=== PATIENT | female | born 1995 | race Caucasian/White ===

== ENCOUNTER 2019-04-15 05:03 | Emergency (ER) | payer MEDICAID ==
--- NOTE | 2019-04-15 05:35 | EDM.PDOC ---
ED HPI GENERAL MEDICAL PROBLEM - General Chief Complaint: Diabetic Complaint Stated Complaint: [facility] Time Seen by Provider: 04/15/19 05:06 Source of Information: Reports: Patient, Significant Other (Fianc) History Limitations: Reports: No Limitations - History of Present Illness INITIAL COMMENTS - FREE TEXT/NARRATIVE: Ms. Owens is a very pleasant 23-year-old woman with a past medical history significant for type 1 diabetes and hypertension, who states that she has a continuous glucose monitor (CGM), but not an insulin pump. Alarms are set on the GM, and the patient and her fianc were woken this morning when the CGM alerted her that her glucose was < 40. Her fianc gave her juice and a Coca- Cola, and a short while later it had risen to 51. EMS was called. It is not clear what the patient's Accu-Chek was when they arrived, however, they started the patient on D10. Upon arrival to the ED, and Accu-Chek here is 204. The patient states that she is not sure if she was symptomatic when her glucose was < 40. Her fianc told her that she was diaphoretic, and not making much sense. Here in the ED, she states that she is feeling completely back to normal. The patient takes 9 units of Lantus in the morning, and 4 in the evening. She also takes NovoLog by sliding scale. She states that she ate a normal dinner and had a normal evening snack last night, and took her usual amount of insulin. She states that she has had hypoglycemic events in the past, primarily when she was a child, and doubled up on her insulin. She states that there is no chance that she doubled up on her insulin this time. The patient does not know what may have precipitated this event. She states that she was hospitalized with pneumonia in January, but otherwise she has not been recently ill with fever, chills, cough, dyspnea, chest pain, palpitations, nausea, vomiting, constipation, diarrhea, abdominal pain, urinary symptoms, recent weight gain or weight loss, recent bloody bowel movements or black bowel movements, recent joint aches, headaches, or rashes. The patient states that she is currently on a diuretic, after getting a lot of interstitial fluid when she was treated for pneumonia. She has her BUN/Cr checked frequently, most recently on 04/01/2019, and that it has remained normal. Unfortunately, her blood tests are performed at [facility], and we do not have access to those records. Here in the ED, the patient is BP is found to be mildly elevated, with tachycardia. Her oxygen saturation is 100% on room air. The patient's PCP is Dr. Carolnie Schmidt. She received an influenza vaccine this season. - Related Data Allergies Allergy/AdvReac Type Severity Reaction Status Date / Time pregabalin [From Lyrica] Allergy Rash Verified 04/15/19 05:06 Sulfa (Sulfonamide Allergy Rash Verified 04/15/19 05:06 Antibiotics) Home Meds: Home Meds Furosemide 20 mg PO DAILY 04/15/19 [History] Insulin Aspart [NovoLOG] 4 units SQ BEDTIME 04/15/19 [History] Insulin Aspart [NovoLOG] 9 units SQ ACBREAKFAST 04/15/19 [History] Insulin Glarg,Human.Rec.Analog [Lantus] 0 units SQ QID 04/15/19 [History] Lisinopril [Zestril] 10 mg PO DAILY 04/15/19 [History] Past Medical History Cardiovascular History: Reports: Hypertension Endocrine/Metabolic History: Reports: Diabetes, Type I - Past Surgical History HEENT Surgical History: Reports: Oral Surgery (wisdom teeth extraction) Social & Family History - Tobacco Use Smoking Status *Q: Never Smoker - Alcohol Use Alcohol Use History: Yes Alcohol Use Frequency: Rarely - Recreational Drug Use Recreational Drug Use: No - Living Situation & Occupation Living situation: Reports: Single, with Significant Other (Fianc) Occupation: Employed ([employer]) ED ROS GENERAL - Review of Systems Review Of Systems: Comprehensive ROS is negative, except as noted in HPI. ED EXAM GENERAL NO PERIP PULSE - Physical Exam Exam: See Below Exam Limited By: No Limitations General Appearance: Alert, WD/WN, No Apparent Distress Eye Exam: Bilateral Eye: EOMI, Normal Inspection Ears: Normal External Exam, Hearing Grossly Normal Nose: Normal Inspection Throat/Mouth: Normal Inspection, Normal Lips, Normal Voice, No Airway Compromise Head: Atraumatic, Normocephalic Neck: Normal Inspection, Full Range of Motion Respiratory/Chest: No Respiratory Distress, Lungs Clear, Normal Breath Sounds, No Accessory Muscle Use Cardiovascular: Normal Peripheral Pulses, No Gallop, No JVD, No Murmur, No Rub, Tachycardia (regular), Other (Prominent split S2, which fused when the patient was asked to perform a valsalva maneuver) GI/Abdominal: Normal Bowel Sounds, Soft, Non-Tender, No Organomegaly, No Distention, No Abnormal Bruit, No Mass (Female) Exam: Deferred Rectal (Female) Exam: Deferred Back Exam: Normal Inspection, Full Range of Motion, NT Extremities: Normal Inspection, Normal Range of Motion, Normal Capillary Refill , Other (1-2+ bilateral pretibial edema, with some ecchymosis to the anterior right leg) Neurological: Alert, Oriented, Normal Cognition, No Motor/Sensory Deficits Psychiatric: Normal Affect Skin Exam: Warm, Dry, Intact, Normal Color, No Rash EKG INTERPRETATION EKG Date: 04/15/19 Time: 05:36 Rhythm: Other (Sinus tachycardia) Rate (Beats/Min): 115 Clifford: Normal P-Wave: Present QRS: Other (Right VCD) ST-T: Normal QT: Prolonged (QTc 522 ms) Comparison: NA - No Prior EKG Course - Vital Signs Last Recorded V/S: Last Vital Signs Temp 36.2 C 04/15/19 05:06 Pulse 109 H 04/15/19 05:06 Resp 16 04/15/19 05:06 BP 155/116 H 04/15/19 05:06 Pulse Ox 100 04/15/19 05:06 - Orders/Labs/Meds Orders: Active Orders 24 hr Category Date Time Status Accu Check [Blood Glucose Check, Bedside] [RC] ONETIME Care 04/15/19 05:13 Active EKG Documentation Completion [RC] STAT Care 04/15/19 05:29 Active Labs: Laboratory Tests 04/15/19 04/15/19 04/15/19 Range/Units 05:06 06:07 06:07 WBC 9.40 (3.98-10.04) K/mm3 RBC 3.24 L (3.98-5.22) M/mm3 Hgb 10.2 L (11.2-15.7) gm/dl Hct 32.6 L (34.1-44.9) % MCV 100.6 H (79.4-94.8) fl MCH 31.5 (25.6-32.2) pg MCHC 31.3 L (32.2-35.5) g/dl RDW Std Deviation 47.4 H (36.4-46.3) fL Plt Count 387 H (182-369) K/mm3 MPV 9.2 L (9.4-12.3) fl Neutrophils % (Manual) 77 H (40-60) % Band Neutrophils % 0 (0-10) % Lymphocytes % (Manual) 21 (20-40) % Atypical Lymphs % 0 % Monocytes % (Manual) 1 L (2-10) % Eosinophils % (Manual) 1 (0.7-5.8) % Basophils % (Manual) 0 L (0.1-1.2) Platelet Estimate Adequate Anisocytosis 2+ moderate Macrocytosis 3+ marked RBC Morph Comment Not Reportable Sodium 144 (136-145) mEq/L Potassium 3.9 (3.5-5.1) mEq/L Chloride 106 (98-107) mEq/L Carbon Dioxide 29 (21-32) mEq/L Anion Gap 12.9 (5-15) BUN 19 H (7-18) mg/dL Creatinine 0.8 (0.55-1.02) mg/dL Est Cr Clr Drug Dosing 72.21 mL/min Estimated GFR (MDRD) > 60 (>60) mL/min BUN/Creatinine Ratio 23.8 H (14-18) Glucose 163 H (74-106) mg/dL POC Glucose 204 H (70-105) mg/dL Calcium 8.6 (8.5-10.1) mg/dL Total Bilirubin 0.1 L (0.2-1.0) mg/dL AST 23 (15-37) U/L ALT 33 (14-59) U/L Alkaline Phosphatase 139 H (46-116) U/L Total Protein 6.8 (6.4-8.2) g/dl Albumin 2.5 L (3.4-5.0) g/dl Globulin 4.3 gm/dL Albumin/Globulin Ratio 0.6 L (1-2) - Re-Assessments/Exams Free Text/Narrative Re-Assessment/Exam: 04/15/19 05:30 The cause of the patient's hypoglycemic reaction is unclear, as she ate her usual diet and took her usual amount of insulin. No recent illness. After drinking juice and Coca-Cola at home and being given D10 by EMS, her Accu-Chek here is 204. The plan will be to continue to monitor her blood glucose until around 07:00, at which time she can have breakfast, then be discharged home. At present, her D10 is off, but if her blood glucose should drop, we can restart it. In the meantime, I have ordered a CBC and CMP to evaluate for an infection or significant electrolyte abnormalities, and an ECG due to a split S2 on auscultation of her heart. 04/15/19 06:53 The patient CBC is remarkable for an H/H mildly depressed at 10.2/32.6, and platelets elevated at 387,000, with the remainder of her CBC being unremarkable. Her CMP is remarkable for a BUN slightly elevated at 19 with a creatinine normal at 0.8. Her blood glucose is elevated at 163, and her alkaline phosphatase is mildly elevated at 139, with the remainder of her CMP being unremarkable. The patient's most recent blood glucose is 261. We will order breakfast for the patient at 7:00, and estimate that it will arrive around 7:15. The patient will resume her usual insulin accordingly. She can then be discharged home. Departure - Departure Time of Disposition: 06:56 Disposition: Home, Self-Care 01 Clinical Impression: Right ventricular conduction delay, QT prolongation, Hypoglycemic reaction - Discharge Information *PRESCRIPTION DRUG MONITORING PROGRAM REVIEWED*: Not Applicable *COPY OF PRESCRIPTION DRUG MONITORING REPORT IN PATIENT MILENA: Not Applicable Referrals: Caroline Schmidt MD [Primary Care Provider] - Forms: ED Department Discharge Additional Instructions: You were seen in the emergency room after suffering a hypoglycemic reaction at home. Work-up in the ER included blood work and an ECG. Your blood work was unremarkable, but your ECG confirmed that you have a right ventricular conduction delay and a prolonged QT. The right ventricular conduction delay is of no specific concern, although it produces an unusual sounding heartbeat. The QT prolongation means that you should probably avoid certain types of medications. Your blood glucose returned to normal after you drank some juice and Coca-Cola at home and were given dextrose-containing IV fluid by the paramedics. The cause of your hypoglycemic event is not clear, therefore it is possible that it might happen again. Going forward, we recommend that you continue on your usual dose of insulin with your usual diet, however, if you suffer another hypoglycemic event, changes will need to be made in the amount of insulin that you take. Follow-up with your PCP, Dr. Caroline Schmidt, as needed. If any other problems, please do not hesitate to return to the ER. Sepsis Event Note - Evaluation Sepsis Screening Result: No Definite Risk - Focused Exam Vital Signs: Vital Signs Temp Pulse Resp BP Pulse Ox 04/15/19 05:06 36.2 C 109 H 16 155/116 H 100 Date Exam was Performed: 04/15/19 Time Exam was Performed: 07:08 - My Orders Last 24 Hours: My Active Orders 04/15/19 05:13 Accu Check [Blood Glucose Check, Bedside] [RC] ONETIME 04/15/19 05:29 EKG Documentation Completion [RC] STAT - Assessment/Plan Last 24 Hours: My Active Orders 04/15/19 05:13 Accu Check [Blood Glucose Check, Bedside] [RC] ONETIME 04/15/19 05:29 EKG Documentation Completion [RC] STAT
== END 2019-04-15 09:00 | disposition home or self-care (01) ==
LOC: SUPCPDRO 05:03 → JD.ED 05:03
DX: E10.649 Type 1 diabetes mellitus with hypoglycemia without coma (principal); I45.9 Conduction disorder, unspecified; R94.31 Abnormal electrocardiogram [ECG] [EKG]; I10 Essential (primary) hypertension; Z79.4 Long term (current) use of insulin; Z79.899 Other long term (current) drug therapy; Z88.8 Allergy status to other drugs, medicaments and biological substances; Z88.2 Allergy status to sulfonamides
CPT/HCPCS: 36415; 80053; 82962; 85007; 85027; 93005; 99285-25

== ENCOUNTER 2021-01-28 18:03 | Emergency (ER) | payer MEDICARE, MEDICAID ==
[2021-01-28] MEDS ORDERED: Fluorescein 1 MG Ophth Strip EYERT ONE (19:51)
--- NOTE | 2021-01-28 19:53 | EDM.PDOC ---
ED HPI GENERAL MEDICAL PROBLEM - General Chief Complaint: Eye Problems Stated Complaint: VISION COMPLAINT Time Seen by Provider: 01/28/21 19:51 Source of Information: Reports: Patient History Limitations: Reports: No Limitations - History of Present Illness INITIAL COMMENTS - FREE TEXT/NARRATIVE: Patient is a 25-year-old female presenting to the emergency room with a chief complaint of right eye visual change. She has a past history of type 1 diabetes and chronic kidney disease. She started on hemodialysis in April. Last hemodialysis session was today. She noticed this change in her vision today. She reports that she feels like there is something in her line of vision in the right eye. She states it almost looks like a blood vessel. It does follow her field of vision when she changes her gaze. She denies any trauma to the eye, any headache, pain in the eye, discharge from the eye, sensitivity to light. She does not wear glasses or contacts. She does follow with a retinal specialist every 3 to 6 months. No past history of ocular surgery. - Related Data Allergies Allergy/AdvReac Type Severity Reaction Status Date / Time pregabalin [From Lyrica] Allergy Rash Verified 01/28/21 18:33 Sulfa (Sulfonamide Allergy Rash Verified 01/28/21 18:33 Antibiotics) Home Meds: Home Meds Insulin Aspart [NovoLOG] 0 units SQ DAILY 04/15/19 [History] Losartan [Cozaar] 1 tab PO DAILY 01/28/21 [History] Metoprolol Succinate 1 tab PO DAILY 01/28/21 [History] amLODIPine [Norvasc] 1 tab PO DAILY 01/28/21 [History] Past Medical History Cardiovascular History: Reports: Hypertension Respiratory History: Reports: Pneumonia, Recurrent Genitourinary History: Reports: Dialysis Endocrine/Metabolic History: Reports: Diabetes, Type I - Past Surgical History HEENT Surgical History: Reports: Oral Surgery Female Surgical History: Reports: Other (See Below) Other Female Surgeries/Procedures: dialysis shunt Social & Family History - Tobacco Use Tobacco Use Status *Q: Never Tobacco User Second Hand Smoke Exposure: No - Living Situation & Occupation Living situation: Reports: Single, with Significant Other (Fianc) Occupation: Employed ([employer]) ED ROS GENERAL - Review of Systems Review Of Systems: Comprehensive ROS is negative, except as noted in HPI. ED EXAM GENERAL W FULL EYE - Physical Exam Exam: See Below Text/Narrative:: EYE EXAM (detailed) Visual Acuity: OD 20/20; OS 20/20; Visual Gallego:OD intact x 4; OS intact x 4 Extraocular movements: OD intact w/o diplopia; OS intact w/o diplopia Lids/Lashes/Lacrimal: OD no lesions; OS no lesions Conjunctiva & Sclera: OD white and quiet; OS white and quiet Cornea: OD no fluorescein uptake;OS not tested Anterior chamber: OD deep and quiet; OS deep and quiet Iris: OD round and reactive; OS round and reactive Lens: OD clear; OS clear Retina: OD examined with ultrasound demonstrates linear flap in the posterior retinal area. No snow globe appearance. Intraocular pressure: Not assessed Course - Vital Signs Last Recorded V/S: Last Vital Signs Temp 37.3 C 01/28/21 18:30 Pulse 102 H 01/28/21 18:30 Resp 16 01/28/21 18:30 BP 134/82 01/28/21 18:30 Pulse Ox 99 01/28/21 18:30 - Orders/Labs/Meds Meds: Medications Discontinued Medications Generic Name Dose Route Start Last Admin Trade Name Maxiq PRN Reason Stop Dose Admin Fluorescein Sodium 1 mg 01/28/21 19:51 Fluorescein 1 Mg Ophth Strip EYERT 01/28/21 19:52 ONETIME ONE Departure - Departure Time of Disposition: 20:41 Disposition: Home, Self-Care 01 Clinical Impression: Retinal detachment - Discharge Information Referrals: Samia Espinosa MD [Primary Care Provider] - Forms: ED Department Discharge Additional Instructions: Please follow-up with Dr. Carpio on January 31, at 9 AM. Sepsis Event Note (ED) - Evaluation Sepsis Screening Result: No Definite Risk - Focused Exam Vital Signs: Vital Signs Temp Pulse Resp BP Pulse Ox 01/28/21 18:30 37.3 C 102 H 16 134/82 99 - Assessment/Plan Assessment:: Patient is a 25-year-old female presenting with visual changes. Eye exam as listed above. Was able to get in touch with her retinal specialist, Dr. Carpio who agreed to see her on Sunday at 9 AM. No other interventions required at this time. Patient will be discharged in stable condition. Return precautions discussed.
== END 2021-01-28 20:51 | disposition home or self-care (01) ==
LOC: JD.ED 18:03
DX: H33.21 Serous retinal detachment, right eye (principal); E10.9 Type 1 diabetes mellitus without complications; I10 Essential (primary) hypertension; Z88.2 Allergy status to sulfonamides; Z88.8 Allergy status to other drugs, medicaments and biological substances; Z79.899 Other long term (current) drug therapy
CPT/HCPCS: 99284-25

== ENCOUNTER 2021-09-03 07:29 | Emergency (ER) | payer MEDICARE, MEDICAID ==
[2021-09-03] MEDS ORDERED: Doxycycline 100 MG Cap PO ONE (09:30)
[2021-09-03] MEDS ORDERED: Famotidine 10 MG Tab PO ONE (09:30)
[2021-09-03] MEDS ORDERED: Famotidine 20 MG Tab PO ONE (09:45)
== END 2021-09-03 10:41 | disposition home or self-care (01) ==
LOC: JD.ED 07:29
DX: L08.9 Local infection of the skin and subcutaneous tissue, unspecified (principal); I10 Essential (primary) hypertension; E10.9 Type 1 diabetes mellitus without complications; Z88.8 Allergy status to other drugs, medicaments and biological substances; Z88.2 Allergy status to sulfonamides; Z79.82 Long term (current) use of aspirin
CPT/HCPCS: 99283; A9270; 99282

== ENCOUNTER 2021-11-09 11:08 | Emergency (ER) | payer MEDICARE, MEDICAID | END 2021-11-09 12:30 | disposition home or self-care (01) | LOC: JD.ED 11:08 | DX: L03.113 Cellulitis of right upper limb (principal); I10 Essential (primary) hypertension; E10.9 Type 1 diabetes mellitus without complications; Z79.899 Other long term (current) drug therapy; Z79.82 Long term (current) use of aspirin; Z88.8 Allergy status to other drugs, medicaments and biological substances; Z88.2 Allergy status to sulfonamides | CPT/HCPCS: 36415; 80053; 85007; 85027; 86140; 99283; 99284 ==

== ENCOUNTER 2024-06-19 17:10 | Inpatient (IN) | payer MEDICARE, BC ==
[2024-06-19 20:59] LABS: BASOPHILS PERCENT AUTO 0.2 % (0.0-1.0); EOSINOPHILS PERCENT AUTO 0.4 % (0.0-6.0); HEMATOCRIT 38.3 % (37.0-47.0); HEMOGLOBIN 11.8 gm/dl (12.0-16.0); IMMATURE GRAN ABSOLUTE AUTO 0.01 K/mm3 (0.00-0.05); IMMATURE GRAN PERCENT AUTO 0.2 % (0.0-0.4); LYMPHOCYTES PERCENT AUTO 19.5 % (24.0-44.0); MEAN CORPUSCULAR HEMOGLOBIN 29.1 pg (28.0-32.0); MEAN CORPUSCULAR HGB CONC 30.8 g/dl (32.0-36.0); MEAN CORPUSCULAR VOLUME 94.3 fl (83.0-99.0); MEAN PLATELET VOLUME 10.3 fl (9.4-12.3); MONOCYTES ABSOLUTE AUTO 0.3 K/mm3 (0.0-0.8); MONOCYTES PERCENT AUTO 6.2 % (0.0-8.0); NEUTROPHILS ABSOLUTE AUTO 3.7 K/mm3 (1.8-7.7); NEUTROPHILS PERCENT AUTO 73.5 % (41.0-71.0); PLATELET COUNT,PLT 222 K/mm3 (150-400); RED BLOOD CELL COUNT 4.06 M/mm3 (4.10-5.30); WHITE BLOOD CELL COUNT,WBC 5.03 K/mm3 (3.9-11.3)
[2024-06-19 21:19] LABS: A/G RATIO 1.1 (1-2); ANION GAP 13.6 (5-15); BILIRUBIN TOTAL 0.3 mg/dL (0.2-1.0); BUN/CREATININE RATIO 11.3 (14-18); CALCIUM 8.9 mg/dL (8.5-10.1); CREATININE 1.5 mg/dL (0.55-1.02); EST CRCL DRUG DOSING (CG) 40.08 mL/min; POTASSIUM,K 4.6 mEq/L (3.5-5.1); PROTEIN TOTAL,TP 7.7 g/dl (6.4-8.2)
[2024-06-19] MEDS: Sodium Chloride 0.9% 1,000 ML IV ONE ×2 (21:20→23:49)
[2024-06-19] MEDS: Polyethylene Glycol 3350 Powder 17 GM Packet PO ONE (23:49)
[2024-06-19] MEDS: Magnesium Citrate Solution 296 ML Bottle PO ONE (23:49)
[2024-06-20] MEDS: Iopamidol 612 MG/ML 100 ML Bottle IVPUSH ONE (00:15)
[2024-06-20] MEDS: Sodium Chloride 0.9% 1,000 ML IV ONE ×2 (01:36→02:40)
[2024-06-20] MEDS ORDERED: Acetaminophen 325 MG Tab PO PRN (09:04)
[2024-06-20] MEDS ORDERED: Ondansetron 4 MG/2 ML SDV IV PRN (09:04)
[2024-06-20] MEDS ORDERED: oxyCODONE 5 MG Tab PO PRN (09:04)
[2024-06-20 09:46] LABS: BASOPHILS PERCENT AUTO 0.4 % (0.0-1.0); EOSINOPHILS ABSOLUTE AUTO 0.1 K/mm3 (0.0-0.4); EOSINOPHILS PERCENT AUTO 1.9 % (0.0-6.0); HEMATOCRIT 33.3 % (37.0-47.0); IMMATURE GRAN ABSOLUTE AUTO 0.01 K/mm3 (0.00-0.05); IMMATURE GRAN PERCENT AUTO 0.2 % (0.0-0.4); LYMPHOCYTES ABSOLUTE AUTO 1.1 K/mm3 (1.0-4.8); LYMPHOCYTES PERCENT AUTO 22.9 % (24.0-44.0); MEAN CORPUSCULAR HEMOGLOBIN 29.6 pg (28.0-32.0); MEAN CORPUSCULAR HGB CONC 30.6 g/dl (32.0-36.0); MEAN CORPUSCULAR VOLUME 96.5 fl (83.0-99.0); MEAN PLATELET VOLUME 10.3 fl (9.4-12.3); MONOCYTES ABSOLUTE AUTO 0.6 K/mm3 (0.0-0.8); MONOCYTES PERCENT AUTO 12.2 % (0.0-8.0); NEUTROPHILS PERCENT AUTO 62.4 % (41.0-71.0); PLATELET COUNT,PLT 201 K/mm3 (150-400); RED BLOOD CELL COUNT 3.45 M/mm3 (4.10-5.30); WHITE BLOOD CELL COUNT,WBC 4.85 K/mm3 (3.9-11.3)
[2024-06-20 09:54] LABS: HEMOGLOBIN 10.2 gm/dl (12.0-16.0)
[2024-06-20] MEDS ORDERED: Polyethylene Glycol 3350 Powder 17 GM Packet PO PRN (10:03)
[2024-06-20] MEDS ORDERED: Docusate Sodium 100 MG Cap PO PRN (10:04)
[2024-06-20 10:06] LABS: A/G RATIO 1.1 (1-2); ALBUMIN 3.6 g/dl (3.4-5.0); ANION GAP 14.8 (5-15); BILIRUBIN TOTAL 0.2 mg/dL (0.2-1.0); BUN/CREATININE RATIO 16.9 (14-18); C-REACTIVE PROTEIN 0.25 mg/dL (<0.30); CALCIUM 8.2 mg/dL (8.5-10.1); CREATININE 1.3 mg/dL (0.55-1.02); EST CRCL DRUG DOSING (CG) 47.58 mL/min; MAGNESIUM 1.8 mg/dL (1.8-2.4); POTASSIUM,K 4.8 mEq/L (3.5-5.1); PROTEIN TOTAL,TP 6.9 g/dl (6.4-8.2)
[2024-06-20] MEDS: Polyethylene Glycol 3350 Powder 17 GM Packet PO SCH (10:16)
[2024-06-20] MEDS: Midodrine 5 MG Tab PO SCH (10:41)
[2024-06-20] MEDS: predniSONE 5 MG Tab PO SCH (10:41)
[2024-06-20] MEDS: MYCOPHENOLATE SODIUM 180 MG PO SCH ×2 (10:42→21:35)
[2024-06-20] MEDS: ITRACONAZOLE 100 MG PO SCH (10:42)
[2024-06-20] MEDS: Tacrolimus 0.5 MG Cap PO SCH (10:42)
[2024-06-20] MEDS: Sodium Chloride 0.9% 1,000 ML IV SCH (10:47)
[2024-06-20 14:39] LABS: APPEARANCE,URINE CLEAR (Clear); BILIRUBIN,URINE NEGATIVE (Negative); COLOR,URINE YELLOW (Yellow); GLUCOSE,URINE NEGATIVE (Negative); KETONES,URINE NEGATIVE (Negative); LEUKOCYTE ESTERASE,URINE NEGATIVE (Negative); NITRITE,URINE NEGATIVE (Negative); OCCULT BLOOD,URINE TRACE-INTACT (Negative); PROTEIN,URINE NEGATIVE (Negative); UROBILINOGEN,URINE 0.2 (0.2-1.0)
[2024-06-20 15:05] LABS: BACTERIA,URINE FEW /hpf (FEW); RBC,URINE 0-5 /hpf (0-5); SQUAMOUS EPITHELIAL CELLS,UR 0-5 /hpf (0-5); WBC,URINE 0-5 /hpf (0-5)
[2024-06-20 15:06] LABS: MUCUS,URINE FEW /hpf (FEW)
[2024-06-20] MEDS ORDERED: Midodrine 5 MG Tab PO PRN (17:35)
[2024-06-20] MEDS ORDERED: Docusate Sodium 100 MG Cap PO SCH (21:00)
[2024-06-21 05:58] LABS: BASOPHILS PERCENT AUTO 0.2 % (0.0-1.0); EOSINOPHILS ABSOLUTE AUTO 0.1 K/mm3 (0.0-0.4); EOSINOPHILS PERCENT AUTO 1.6 % (0.0-6.0); HEMATOCRIT 27.7 % (37.0-47.0); IMMATURE GRAN ABSOLUTE AUTO 0.01 K/mm3 (0.00-0.05); IMMATURE GRAN PERCENT AUTO 0.2 % (0.0-0.4); LYMPHOCYTES ABSOLUTE AUTO 0.8 K/mm3 (1.0-4.8); LYMPHOCYTES PERCENT AUTO 19.5 % (24.0-44.0); MEAN CORPUSCULAR HEMOGLOBIN 29.7 pg (28.0-32.0); MEAN CORPUSCULAR VOLUME 95.5 fl (83.0-99.0); MEAN PLATELET VOLUME 10.6 fl (9.4-12.3); MONOCYTES ABSOLUTE AUTO 0.5 K/mm3 (0.0-0.8); MONOCYTES PERCENT AUTO 11.5 % (0.0-8.0); NEUTROPHILS ABSOLUTE AUTO 2.8 K/mm3 (1.8-7.7); PLATELET COUNT,PLT 164 K/mm3 (150-400); WHITE BLOOD CELL COUNT,WBC 4.25 K/mm3 (3.9-11.3)
[2024-06-21 06:00] LABS: HEMOGLOBIN 8.6 gm/dl (12.0-16.0)
[2024-06-21 06:06] LABS: ALBUMIN 2.7 g/dl (3.4-5.0); ANION GAP 11.4 (5-15); BILIRUBIN TOTAL 0.3 mg/dL (0.2-1.0); BUN/CREATININE RATIO 12.7 (14-18); C-REACTIVE PROTEIN 0.51 mg/dL (<0.30); CALCIUM 7.8 mg/dL (8.5-10.1); CREATININE 1.1 mg/dL (0.55-1.02); EST CRCL DRUG DOSING (CG) 55.85 mL/min; MAGNESIUM 1.4 mg/dL (1.8-2.4); POTASSIUM,K 4.4 mEq/L (3.5-5.1); PROTEIN TOTAL,TP 5.4 g/dl (6.4-8.2)
[2024-06-21] MEDS: MYCOPHENOLATE SODIUM 180 MG PO SCH (08:08)
[2024-06-21] MEDS ORDERED: Midodrine 5 MG Tab PO SCH (09:00)
[2024-06-22 17:42] LABS: TACROLIMUS (FK506) 6.5 ng/mL
== END 2024-06-21 08:15 | DRG 438 ==
LOC: JD.ED 17:10 → UNDOADMIN 23:30 → JD.MS 23:30 → UNDOADMIN 06-20 23:30 → UNDODISIN 06-21 08:15
PROVIDERS: ADMIT Family Medicine; ATTEND Family Medicine
DX: K85.90 Acute pancreatitis without necrosis or infection, unspecified (principal); N18.6 End stage renal disease; I10 Essential (primary) hypertension; D84.9 Immunodeficiency, unspecified; I12.0 Hypertensive chronic kidney disease with stage 5 chronic kidney disease or end stage renal disease; Z94.83 Pancreas transplant status; Z94.0 Kidney transplant status; F15.90 Other stimulant use, unspecified, uncomplicated; R74.8 Abnormal levels of other serum enzymes; E10.22 Type 1 diabetes mellitus with diabetic chronic kidney disease; K59.00 Constipation, unspecified; Z99.2 Dependence on renal dialysis; Z88.2 Allergy status to sulfonamides; Z88.8 Allergy status to other drugs, medicaments and biological substances; Z79.899 Other long term (current) drug therapy; Z87.01 Personal history of pneumonia (recurrent); Z87.440 Personal history of urinary (tract) infections; Z86.16 Personal history of COVID-19; Z98.890 Other specified postprocedural states; Z86.19 Personal history of other infectious and parasitic diseases; Z86.14 Personal history of Methicillin resistant Staphylococcus aureus infection
CPT/HCPCS: 36415; 74176; 74176-26; 80053; 80197; 81001; 82150; 82947; 83690; 83735; 84703; 85025; 86140; 99284; A9270-GY; J3490; J7030; J7507; J7512